=== PATIENT | female | born 1970 | race American Indian/Alaskan Native ===

== ENCOUNTER 2017-08-07 10:27 | Day surgery (SDC) | payer BC, OTHER ==
[~2017-08-07 10:27] MED LIST: Lactated Ringers 1,000 ML IV SCH; Lidocaine 2% 5 ML SDV ONE; Propofol 200 MG/20 ML SDV ONE; Sodium Chloride 0.9% 10 ML Syringe FLUSH PRN; Sodium Chloride 0.9% 2.5 ML Syringe FLUSH PRN
--- NOTE | 2017-08-07 11:16 | PCM.PREANE ---
Preanesthetic Assessment - Anesthesia/Transfusion/Family Hx Anesthesia History: Prior Anesthesia Without Reaction Family History of Anesthesia Reaction: No Transfusion History: No Prior Transfusion(s) Intubation History: Unknown - Review of Systems General: No Symptoms Pulmonary: No Symptoms Cardiovascular: No Symptoms Gastrointestinal: Difficulty Swallowing, Other (acid reflux) Neurological: No Symptoms Other: Reports: None - Physical Assessment O2 Sat by Pulse Oximetry: 97 Respiratory Rate: 16 Vital Signs: Last Vital Signs Temp 36.9 C 08/07/17 11:02 Pulse 71 08/07/17 11:02 Resp 16 08/07/17 11:02 BP 118/72 08/07/17 11:02 Pulse Ox 97 08/07/17 11:02 Height: 1.65 m Weight: 102.058 kg ASA Class: 2 Mental Status: Alert & Oriented x3 Airway Class: Mallampati = 2 Dentition: Reports: Normal Dentition, Groom(s) (x1 upper front) Thyro-Mental Finger Breadths: 3 Mouth Opening Finger Breadths: 3 ROM/Head Extension: Full Lungs: Clear to Auscultation, Normal Respiratory Effort Cardiovascular: Regular Rate, Regular Rhythm - Allergies Allergies/Adverse Reactions: Allergies Allergy/AdvReac Type Severity Reaction Status Date / Time Penicillins Allergy Swollen Verified 08/05/17 16:39 Tongue - Blood Blood Available: No - Anesthesia Plan Pre-Op Medication Ordered: None - Acknowledgements Anesthesia Type Planned: MAC Pt an Appropriate Candidate for the Planned Anesthesia: Yes Alternatives and Risks of Anesthesia Discussed w Pt/Guardian: Yes Pt/Guardian Understands and Agrees with Anesthesia Plan: Yes PreAnesthesia Questionnaire - Past Health History Medical/Surgical History: Denies Medical/Surgical History HEENT History: Reports: Allergic Rhinitis Other HEENT History: takes sertraline for allergies Cardiovascular History: Reports: Hypertension Gastrointestinal History: Reports: GERD, Helicobacter Pylori, Hiatal Hernia, Other (See Below) Other Gastrointestinal History: dysphagia [employer]ASS[employer]GER [employer] 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: Musculoskeletal History: Reports: Arthritis, Fracture Other Musculoskeletal History: hx of fx finger Psychiatric History: Reports: Anxiety Endocrine/Metabolic History: Reports: Obesity/BMI 30+ - Past Surgical History HEENT Surgical History: Reports: Oral Surgery Other HEENT Surgeries/Procedures: wisdom teeth GI Surgical History: Reports: Cholecystectomy Female Surgical History: Reports: Section, Tubal Ligation - SUBSTANCE USE Smoking Status *Q: Former Smoker (quit 2 years ago) Days Per Week of Alcohol Use: 0 Recreational Drug Use History: No - HOME MEDS Home Medications: Home Meds Carvedilol 12.5 mg PO BID 08/05/17 [History] Celecoxib 200 mg PO ASDIRECTED PRN 08/05/17 [History] Escitalopram Oxalate 20 mg PO DAILY 08/05/17 [History] Furosemide 20 mg PO ASDIRECTED PRN 08/05/17 [History] Montelukast Sodium 10 mg PO BEDTIME 08/05/17 [History] Sucralfate [Carafate] 1 gm PO QID 08/05/17 [History] - CURRENT (IN HOUSE) MEDS Current Meds: Current Medications Lactated Ringer's (Ringers, Lactated) 1,000 mls @ 125 mls/hr IV ASDIRECTED CHRISTIE Last Admin: 08/07/17 11:02 Dose: 125 mls/hr Sodium Chloride (Saline Flush) 10 ml FLUSH ASDIRECTED PRN PRN Reason: Keep Vein Open Sodium Chloride (Saline Flush) 2.5 ml FLUSH ASDIRECTED PRN PRN Reason: Keep Vein Open Discontinued Medications Lidocaine (Xylocaine-Mpf 2%) Confirm Administered Dose 5 ml .ROUTE .STK-MED ONE Stop: 08/07/17 09:45 Propofol (Diprivan 20 Ml) Confirm Administered Dose 400 mg .ROUTE .STK-MED ONE Stop: 08/07/17 09:45
--- NOTE | 2017-08-07 12:23 | PCM.OPNOTE ---
- General Post-Op/Procedure Note Date of Surgery/Procedure: 08/07/17 Operative Procedure(s): EGD with biopsy Findings: Hiatal hernia with inflamed gastric tissue in hernia. Duodenal polyp vs ulceration duodenal bulb Pre Op Diagnosis: Hiatal hernia, GERD Post-Op Diagnosis: Hiatal hernia, gastritis, duodenal lesion Anesthesia Technique: [facility] Primary Surgeon: Francine Costa Condition: Good
--- NOTE | 2017-08-07 21:18 | OR ---
SURGEON: BOB ABRAHAM MD DATE OF PROCEDURE: 08/07/2017 PREOPERATIVE DIAGNOSIS: Hiatal hernia. POSTOPERATIVE DIAGNOSES: 1. Hiatal hernia. 2. Gastritis. 3. Duodenal lesion. PROCEDURE PERFORMED: Diagnostic esophagogastroduodenoscopy. INSTRUMENT USED: Olympus endoscope. ANESTHESIA: MAC. EXTENT OF EXAM: Second portion of the duodenum. PREPARATION: Good. LIMITATIONS: None. INDICATIONS FOR EXAMINATION: The patient is a 47-year-old female, who presents with increasing epigastric pain and dysphagia. An upper GI was performed that showed a small hiatal hernia. The decision was made to proceed with a diagnostic EGD. We discussed the procedure as well as expected perioperative course. We discussed the risks including bleeding, infection, or damage to surrounding structures including perforation. The patient verbalized understanding and wishes to proceed. PROCEDURE IN DETAIL: The patient was brought into the endoscopy suite and placed in a beach chair position. A time-out was completed verifying the patient's name, age, date of , allergies, and procedure to be performed. A bite block was placed in the patient's mouth and monitored anesthesia care was induced. Continuous oxygen was provided via nasal cannula throughout the procedure. After adequate sedation was achieved, a well lubricated endoscope was placed in the patient's mouth and advanced under direct visualization to the level of the second portion of the duodenum. This appeared normal and photograph was taken. The scope was then fully withdrawn while examining the color, texture, anatomy, and integrity of the mucosa of the upper GI tract. The patient was noted to have either healing ulcers or small duodenal polyps right at the level of the pylorus. Biopsies of these were taken and sent as duodenal biopsies. The scope was brought into the stomach and a photograph was taken of the pylorus as well as the GE junction. The patient was noted to have a small hiatal hernia. Biopsies were taken of the gastric body, antrum, and fundus and sent for H. pylori testing. The scope was then brought into the hiatal hernia sac. There was inflammation of the hiatal hernia sac and a biopsy of this area was taken. The scope was then brought into the distal esophagus. The distal esophageal mucosa appeared normal with no evidence of ulceration or inflammation. A photograph was taken. The remainder of the esophageal mucosa appeared normal. The scope was then removed from the patient and the procedure terminated. The patient was transferred to PACU in stable condition. ENDOSCOPIC DIAGNOSES: 1. Hiatal hernia. 2. Gastritis. 3. Duodenal lesion. RECOMMENDATIONS: Follow up in clinic in 2 weeks. The patient to continue to take PPI therapy. SARMAD IRVIN /[id number]
== END 2017-08-07 13:00 | disposition home or self-care (01) ==
LOC: MW.SDS 10:27
PROVIDERS: ATTEND Surgery
DX: K29.50 Unspecified chronic gastritis without bleeding (principal); K44.9 Diaphragmatic hernia without obstruction or gangrene; Z88.0 Allergy status to penicillin; K21.9 Gastro-esophageal reflux disease without esophagitis; Z79.899 Other long term (current) drug therapy; Z90.49 Acquired absence of other specified parts of digestive tract; Z98.51 Tubal ligation status; Z87.891 Personal history of nicotine dependence
CPT/HCPCS: 43239; 88305; 88312; J7120; 00740; J2704

== ENCOUNTER 2017-12-05 03:19 | Emergency (ER) | payer BC, OTHER ==
[2017-12-05] MEDS ORDERED: Pantoprazole 40 MG Vial IVPUSH ONE (03:30)
[2017-12-05] MEDS ORDERED: Alum Hydrox/Mag Hydrox/Simeth 15 ML, Metoclopramide 5 MG, Lidocaine 2% 5 ML PO ONE ×3 (03:30)
[2017-12-05 04:19] LABS: CHLORIDE,CL 104 mmol/L (98-107); SODIUM,NA 142 mmol/L (136-145)
--- NOTE | 2017-12-05 04:44 | EDM.PDOC ---
ED HPI GENERAL MEDICAL PROBLEM - General Chief Complaint: ENT Problem Stated Complaint: BURNING IN THROAT Time Seen by Provider: 12/05/17 04:42 - History of Present Illness INITIAL COMMENTS - FREE TEXT/NARRATIVE: HISTORY AND PHYSICAL: History of present illness: Patient's a 47 show female history of [id number] diabetes gastroesophageal reflux disease and hiatal hernia presents with concern of burning discomfort in her chest. She denies shortness of breath nausea vomiting palpitations other concern Review of systems: As per history of present illness and below otherwise all systems reviewed and negative. Past medical history: As per history of present illness and as reviewed below otherwise noncontributory. Surgical history: As per history of present illness and as reviewed below otherwise noncontributory. Social history: No reported history of drug or alcohol abuse. Family history: As per history of present illness and as reviewed below otherwise noncontributory. Physical exam: HEENT: Atraumatic, normocephalic, pupils reactive, negative for conjunctival pallor or scleral icterus, mucous membranes moist, throat clear, neck supple, nontender, trachea midline. Lungs: Clear to auscultation, breath sounds equal bilaterally, chest nontender. Heart: S1S2, regular, negative for clicks, rubs, or JVD. Abdomen: Soft, nondistended, nontender. Negative for masses or hepatosplenomegaly. Negative for costovertebral tenderness. Pelvis: Stable nontender. Genitourinary: Deferred. Rectal: Deferred. Extremities: Atraumatic, negative for cords or calf pain. Neurovascular unremarkable. Neuro: Awake, alert, oriented. Cranial nerves II through XII unremarkable. Cerebellum unremarkable. Motor and sensory unremarkable throughout. Exam nonfocal. Diagnostics: CBC CMP EKG troponin Therapeutics: GI Cocktail Protonix 80 mg IV Impression: #1 gastroesophageal reflux disease Definitive disposition and diagnosis as appropriate pending reevaluation and review of above. throat Pain Score (Numeric/FACES): 5 - Related Data Allergies Allergy/AdvReac Type Severity Reaction Status Date / Time Penicillins Allergy Swollen Verified 12/05/17 03:25 Tongue Home Meds: Home Meds Carvedilol 12.5 mg PO BID 08/05/17 [History] Celecoxib 200 mg PO ASDIRECTED PRN 08/05/17 [History] Escitalopram Oxalate 20 mg PO DAILY 08/05/17 [History] Furosemide 20 mg PO ASDIRECTED PRN 08/05/17 [History] Montelukast Sodium 10 mg PO BEDTIME 08/05/17 [History] Sucralfate [Carafate] 1 gm PO QID 08/05/17 [History] Pantoprazole [ProTONIX] 40 mg PO ACBREAKFAST #60 tab.cr 08/07/17 [Rx] Carvedilol 3.125 mg PO BID 12/05/17 [History] Diclofenac Sodium [Voltaren] 50 mg PO TID 12/05/17 [History] Lansoprazole [Prevacid] 1 tab PO DAILY 12/05/17 [History] atorvaSTATin [Lipitor] 20 mg PO BEDTIME 12/05/17 [History] metFORMIN [Glucophage] 500 mg PO DAILY 12/05/17 [History] Past Medical History - Past Health History Medical/Surgical History: Denies Medical/Surgical History HEENT History: Reports: Allergic Rhinitis Other HEENT History: takes sertraline for allergies Cardiovascular History: Reports: High Cholesterol, Hypertension Respiratory History: Reports: Other (See Below) Other Respiratory History: Allergies Gastrointestinal History: Reports: GERD, Helicobacter Pylori, Hiatal Hernia, Other (See Below) Other Gastrointestinal History: dysphagia Genitourinary History: Reports: None [employer]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: Musculoskeletal History: Reports: Arthritis, Fracture Other Musculoskeletal History: hx of fx finger Neurological History: Reports: None Psychiatric History: Reports: Anxiety Endocrine/Metabolic History: Reports: Obesity/BMI 30+ Hematologic History: Reports: None Immunologic History: Reports: None Oncologic (Cancer) History: Reports: None Dermatologic History: Reports: None - Infectious Disease History Infectious Disease History: Reports: None - Past Surgical History Head Surgeries/Procedures: Reports: None HEENT Surgical History: Reports: Oral Surgery Other HEENT Surgeries/Procedures: wisdom teeth GI Surgical History: Reports: Cholecystectomy Female Surgical History: Reports: Tubal Ligation Social & Family History - Family History Family Medical History: Noncontributory - Tobacco Use Smoking Status *Q: Never Smoker Years of Tobacco use: 30 - Caffeine Use Caffeine Use: Reports: None - Alcohol Use Days Per Week of Alcohol Use: 0 - Recreational Drug Use Recreational Drug Use: No Drug Use in Last 12 Months: No ED ROS GENERAL - Review of Systems Review Of Systems: ROS reveals no pertinent complaints other than HPI. ED EXAM, GENERAL - Physical Exam Exam: See Below (See dictation) Course - Vital Signs Last Recorded V/S: Last Vital Signs Temp 36.1 C 12/05/17 03:25 Pulse 85 12/05/17 03:25 Resp 19 12/05/17 03:25 BP Pulse Ox 94 L 12/05/17 03:25 - Orders/Labs/Meds Orders: Active Orders 24 hr Category Date Time Status EKG Documentation Completion [RC] STAT Care 12/05/17 03:30 Active Chest 1V Frontal [CR] Stat Exams 12/05/17 03:30 Taken Labs: Laboratory Tests 12/05/17 12/05/17 Range/Units 03:40 03:40 WBC 7.38 (4.0-11.0) K/uL RBC 4.13 L (4.30-5.90) M/uL Hgb 12.0 (12.0-16.0) g/dL Hct 35.8 L (36.0-46.0) % MCV 86.7 (80.0-98.0) fL MCH 29.1 (27.0-32.0) pg MCHC 33.5 (31.0-37.0) g/dL RDW Std Deviation 42.0 (28.0-62.0) fl RDW Coeff of Roberta 13 (11.0-15.0) % Plt Count 293 (150-400) K/uL MPV 9.40 (7.40-12.00) fL Neut % (Auto) 52.8 (48.0-80.0) % Lymph % (Auto) 37.1 (16.0-40.0) % Robertson % (Auto) 6.5 (0.0-15.0) % Eos % (Auto) 3.5 (0.0-7.0) % Baso % (Auto) 0.1 (0.0-1.5) % Neut # (Auto) 3.9 (1.4-5.7) K/uL Lymph # (Auto) 2.7 H (0.6-2.4) K/uL Robertson # (Auto) 0.5 (0.0-0.8) K/uL Eos # (Auto) 0.3 (0.0-0.7) K/uL Baso # (Auto) 0.0 (0.0-0.1) K/uL Nucleated RBC % 0.0 /100WBC Nucleated RBCs # 0 K/uL Sodium 142 (136-145) mmol/L Potassium 3.5 (3.5-5.1) mmol/L Chloride 104 (98-107) mmol/L Carbon Dioxide 26.0 (21.0-32.0) mmol/L BUN 23 H (7.0-18.0) mg/dL Creatinine 0.8 (0.6-1.0) mg/dL Est Cr Clr Drug Dosing 79.07 mL/min Estimated GFR (MDRD) > 60.0 ml/min Glucose 114 H (74-106) mg/dL Calcium 8.9 (8.5-10.1) mg/dL Total Bilirubin 0.3 (0.2-1.0) mg/dL AST 25 (15-37) IU/L ALT 37 (14-63) IU/L Alkaline Phosphatase 123 H (46-116) U/L CK-MB (CK-2) 1.3 (0-3.6) ng/mL Troponin I < 0.050 (0.000-0.056) ng/mL Total Protein 8.1 (6.4-8.2) g/dL Albumin 3.8 (3.4-5.0) g/dL Globulin 4.3 H (2.0-3.5) g/dL Albumin/Globulin Ratio 0.9 L (1.3-2.8) Meds: Medications Discontinued Medications Generic Name Dose Route Start Last Admin Trade Name Freq PRN Reason Stop Dose Admin Al Hydroxide/Mg Hydroxide 15 0 ml 12/05/17 03:30 12/05/17 03:43 ml/ Metoclopramide HCl 5 mg/ PO 12/05/17 03:31 20 each Lidocaine HCl 5 ml ONETIME ONE Administration Pantoprazole Sodium 80 mg 12/05/17 03:30 12/05/17 03:45 Protonix Iv IVPUSH 12/05/17 03:31 80 mg NOW ONE Administration Departure - Departure Time of Disposition: 04:43 Disposition: Home, Self-Care 01 Condition: Good Clinical Impression: Gastroesophageal reflux disease - Discharge Information Additional Instructions: The following information is given to patients seen in the emergency department who are being discharged to home. This information is to outline your options for follow-up care. We provide all patients seen in our emergency department with a follow-up referral. The need for follow-up, as well as the timing and circumstances, are variable depending upon the specifics of your emergency department visit. If you don't have a primary care physician on staff, we will provide you with a referral. We always advise you to contact your personal physician following an emergency department visit to inform them of the circumstance of the visit and for follow-up with them and/or the need for any referrals to a consulting specialist. The emergency department will also refer you to a specialist when appropriate. This referral assures that you have the opportunity for followup care with a specialist. All of these measure are taken in an effort to provide you with optimal care, which includes your followup. Under all circumstances we always encourage you to contact your private physician who remains a resource for coordinating your care. When calling for followup care, please make the office aware that this follow-up is from your recent emergency room visit. If for any reason you are refused follow-up, please contact the [facility] emergency department at and asked to speak to the emergency department charge nurse. Continue current medications follow-up private medical doctor return as needed as discussed - My Orders Last 24 Hours: My Active Orders 12/05/17 03:30 EKG Documentation Completion [RC] STAT Chest 1V Frontal [CR] Stat - Assessment/Plan Last 24 Hours: My Active Orders 12/05/17 03:30 EKG Documentation Completion [RC] STAT Chest 1V Frontal [CR] Stat
--- NOTE | 2017-12-07 09:41 | CR ---
EXAM DATE: 12/05/17 PATIENT'S AGE: 47 Patient: ELDON PARTIDA Facility: [place], [place] Site . Site : [id number] Study: XRay Chest [id number] 4:15:26 AM Ordering Physician: Doctor Dickson Final Report: INDICATION: CHEST PAIN TECHNIQUE: Chest 1 view COMPARISON: March 15, 2012 FINDINGS: Cardiovascular and mediastinum: Heart size and vasculature are normal in caliber and appearance. Mediastinum is within normal limits. Lungs and pleural space: No focal consolidation. No sign of pleural effusion. No pneumothorax. Bones and soft tissues: No significant findings. IMPRESSION: No acute cardiopulmonary disease. Dictated by Juan Hairston MD @ 12/05/2017 4:20:25 AM Dictated by: Juan Hairston MD @ 12/05/2017 04:20:31 (Electronic Signature) Report Signed by Proxy. MTDLou
== END 2017-12-05 04:53 | disposition home or self-care (01) ==
LOC: MW.ED 03:19
DX: K21.9 Gastro-esophageal reflux disease without esophagitis (principal); E78.00 Pure hypercholesterolemia, unspecified; I10 Essential (primary) hypertension; E66.9 Obesity, unspecified; Z88.0 Allergy status to penicillin; Z79.899 Other long term (current) drug therapy; Z79.84 Long term (current) use of oral hypoglycemic drugs; Z68.39 Body mass index [BMI] 39.0-39.9, adult
CPT/HCPCS: 36415; 71045; 80053; 82553; 84484; 85025; 93005; 96374; 99285; A9270; C9113; 99283

== ENCOUNTER 2019-03-13 12:51 | Emergency (ER) | payer BC, OTHER ==
--- NOTE | 2019-03-13 12:58 | EDM.PDOC ---
ED HPI GENERAL MEDICAL PROBLEM - General Chief Complaint: Back Pain or Injury Stated Complaint: BACK PAIN Time Seen by Provider: 03/13/19 12:53 Source of Information: Reports: Patient History Limitations: Reports: No Limitations - History of Present Illness INITIAL COMMENTS - FREE TEXT/NARRATIVE: HISTORY AND PHYSICAL: History of present illness: Patient is a 48-year-old female who presents to the emergency room with complaints of low lumbar pain. She states she was carrying 2 boxes from her car when she moved and suddenly had sharp low back pain. She states she was able to continue to ambulate although when raising her arms or twisting side to side it exacerbated the pain. She denies any numbness, tingling or saddle paresthesias. She denies any weakness, urinary or fecal incontinence. No previous history of back problems. There was no injury, trauma or fall associated with the lumbar back pain Patient denies any fever, chills, headache, change in vision, syncope or near syncope. Denies any chest pain, shortness of breath or cough. Denies any abdominal pain, nausea, vomiting, diarrhea, constipation or dysuria. Has not noted any blood in urine or stool. Patient has been eating and drinking appropriately. Review of systems: As per history of present illness and below otherwise all systems reviewed and negative. Past medical history: As per history of present illness and as reviewed below otherwise noncontributory. Surgical history: As per history of present illness and as reviewed below otherwise noncontributory. Social history: See social history for further information Family history: As per history of present illness and as reviewed below otherwise noncontributory. Physical exam: General: Well-developed and well-nourished 48-year-old female. Alert and oriented. Nontoxic appearing and in no acute distress. HEENT: Atraumatic, normocephalic, pupils equal and reactive bilaterally, negative for conjunctival pallor or scleral icterus, mucous membranes moist, trachea midline. No drooling or trismus noted. No meningeal signs. No hot potato voice noted. Lungs: Clear to auscultation, breath sounds equal bilaterally, chest nontender. Heart: S1S2, regular rate and rhythm without overt murmur Abdomen: Soft, nondistended, nontender. Negative for masses. Negative for costovertebral tenderness. Pelvis: Stable nontender. Genitourinary/Rectal: Deferred. Skin: Intact, warm, dry. No lesions or rashes noted. C-spine/Back: No pinpoint vertebral tenderness upon palpation. No crepitus, step -offs or obvious deformities. Paraspinous muscular tenderness to the low lumbar region bilaterally. Patient is ambulatory into the emergency room without difficulty or deficits. Denies any numbness, tingling or saddle paresthesia. Denies any urinary or fecal incontinence. Patient is able to walk on her heels and toes without difficulty. Extremities: Atraumatic, moves all extremities per self without deficits. Patient is able to bend at the waist forward to about 45 before it causes moderate to severe pain to the lumbar spine. She is able to slightly bend side to side and twist side to side, before causing pain. Neurovascular unremarkable. Neuro: Awake, alert, oriented. Cranial nerves II through XII unremarkable. Cerebellum unremarkable. Motor and sensory unremarkable throughout. Exam nonfocal. Notes: Patient did find relief with the injections. X-ray shows no acute findings. Medication and supportive care measures were reviewed and discussed. Voices understanding and is agreeable to plan of care. Denies any further questions or concerns at this time. Diagnostics: Lumbar Spine X-ray Therapeutics: Toradol, Norflex Prescription: [facility] (#20) Impression: Lumbar back pain, acute Plan: 1. The medication he received as an injection today does cause drowsiness so do not drive for the remaining day 2. When resting please lay on a flat firm surface. Limit your immobility to prevent muscle stiffness, get up to ambulate/move around/gentle stretching multiple times throughout the day. May alternate heat and ice to the painful areas 3. Tylenol as needed for back pain. Thang as directed, this medication may cause drowsiness a do not take it will driving her needing to be functioning outside of the house. 4. Please follow-up with your primary care provider as we discussed. Return to the ED as needed and as discussed. Definitive disposition and diagnosis as appropriate pending reevaluation and review of above. Onset: Today Lower Back Pain Score (Numeric/FACES): 9 - Related Data Allergies Allergy/AdvReac Type Severity Reaction Status Date / Time Penicillins Allergy Swollen Verified 03/13/19 13:00 Tongue Home Meds: Home Meds Carvedilol 12.5 mg PO BID 08/05/17 [History] Escitalopram Oxalate 20 mg PO DAILY 08/05/17 [History] Furosemide 20 mg PO ASDIRECTED PRN 08/05/17 [History] Lansoprazole [Prevacid] 1 tab PO DAILY 12/05/17 [History] Acetaminophen/HYDROcodone [[facility] [place] 325-5 MG] 1 dose PO Q4H PRN #20 tablet [Rx] Past Medical History - Past Health History Medical/Surgical History: Denies Medical/Surgical History HEENT History: Reports: Allergic Rhinitis Other HEENT History: takes sertraline for allergies Cardiovascular History: Reports: High Cholesterol, Hypertension Respiratory History: Reports: Other (See Below) Other Respiratory History: Allergies Gastrointestinal History: Reports: GERD, Helicobacter Pylori, Hiatal Hernia, Other (See Below) Other Gastrointestinal History: dysphagia Genitourinary History: Reports: None [employer] History: Reports: Musculoskeletal History: Reports: Arthritis, Fracture Other Musculoskeletal History: hx of fx finger Neurological History: Reports: None Psychiatric History: Reports: Anxiety Endocrine/Metabolic History: Reports: Obesity/BMI 30+ Hematologic History: Reports: None Immunologic History: Reports: None Oncologic (Cancer) History: Reports: None Dermatologic History: Reports: None - Infectious Disease History Infectious Disease History: Reports: None - Past Surgical History Head Surgeries/Procedures: Reports: None HEENT Surgical History: Reports: Oral Surgery Other HEENT Surgeries/Procedures: wisdom teeth GI Surgical History: Reports: Cholecystectomy Female Surgical History: Reports: Tubal Ligation Social & Family History - Family History Family Medical History: Noncontributory - Caffeine Use Caffeine Use: Reports: None ED ROS GENERAL - Review of Systems Review Of Systems: ROS reveals no pertinent complaints other than HPI. ED EXAM,LOWER BACK PAIN/INJURY - Physical Exam Exam: See Below (See dictation) Course - Vital Signs Last Recorded V/S: Last Vital Signs Temp 97.0 F 03/13/19 12:58 Pulse 96 03/13/19 12:58 Resp 18 03/13/19 12:58 BP 140/74 03/13/19 12:58 Pulse Ox 96 03/13/19 12:58 - Orders/Labs/Meds Orders: Active Orders 24 hr Category Date Time Status Lumbar Spine 2 or 3V [CR] Stat Exams 03/13/19 12:59 Ordered Meds: Medications Discontinued Medications Generic Name Dose Route Start Last Admin Trade Name Freq PRN Reason Stop Dose Admin Ketorolac Tromethamine 60 mg 03/13/19 13:04 03/13/19 13:09 Toradol IM 03/13/19 13:05 60 mg ONETIME ONE Administration Orphenadrine Citrate 60 mg 03/13/19 12:59 03/13/19 13:09 Norflex IM 03/13/19 13:00 60 mg NOW STA Administration Departure - Departure Time of Disposition: 13:28 Disposition: Home, Self-Care 01 Clinical Impression: Acute lumbar back pain Qualifiers: Back pain laterality: bilateral Sciatica presence: without sciatica Qualified Code(s): M54.5 - Low back pain - Discharge Information Prescriptions: Acetaminophen/HYDROcodone [[facility] [place] 325-5 MG] 1 dose PO Q4H PRN #20 tablet PRN Reason: Pain Instructions: Acute Back Pain, Adult Referrals: PCP,Unknown [Primary Care Provider] - Forms: ED Department Discharge Additional Instructions: The following information is given to patients seen in the emergency department who are being discharged to home. This information is to outline your options for follow-up care. We provide all patients seen in our emergency department with a follow-up referral. The need for follow-up, as well as the timing and circumstances, are variable depending upon the specifics of your emergency department visit. If you don't have a primary care physician on staff, we will provide you with a referral. We always advise you to contact your personal physician following an emergency department visit to inform them of the circumstance of the visit and for follow-up with them and/or the need for any referrals to a consulting specialist. The emergency department will also refer you to a specialist when appropriate. This referral assures that you have the opportunity for follow-up care with a specialist. All of these measure are taken in an effort to provide you with optimal care, which includes your follow-up. Under all circumstances we always encourage you to contact your private physician who remains a resource for coordinating your care. When calling for follow-up care, please make the office aware that this follow-up is from your recent emergency room visit. If for any reason you are refused follow-up, please contact the [facility] Emergency Department at and asked to speak to the emergency department charge nurse. [facility] [address] [place] [address], [place] [address] [facility] [address] [place] [address] 1. The medication he received as an injection today does cause drowsiness so do not drive for the remaining day 2. When resting please lay on a flat firm surface. Limit your immobility to prevent muscle stiffness, get up to ambulate/move around/gentle stretching multiple times throughout the day. May alternate heat and ice to the painful areas 3. Tylenol and/or Ibuprofen as needed for back pain. Thang as directed, this medication may cause drowsiness a do not take it will driving her needing to be functioning outside of the house. 4. Please follow-up with your primary care provider as we discussed. Return to the ED as needed and as discussed. - My Orders Last 24 Hours: My Active Orders 03/13/19 12:59 Lumbar Spine 2 or 3V [CR] Stat - Assessment/Plan Last 24 Hours: My Active Orders 03/13/19 12:59 Lumbar Spine 2 or 3V [CR] Stat
[2019-03-13] MEDS ORDERED: Ketorolac 60 MG/2 ML SDV IM ONE (13:04)
--- NOTE | 2019-03-13 14:17 | CR ---
Pain 3 views of the lumbar spine. Findings : Normal height and alignment lumbar vertebral bodies. Five non rib-bearing lumbar type vertebral bodies. Short ribs at the designated T12. Grade 1 anterolisthesis of L4 on L5. Mild degenerative change of lumbar spine. No acute fractures. Dictated by Maritza Samaniego MD @ Mar 13 2019 2:15PM Signed by Dr. Maritza Samaniego @ Mar 13 2019 2:16PM
== END 2019-03-13 14:04 | disposition home or self-care (01) ==
LOC: MW.ED 12:51
DX: M54.5 Low back pain (principal); M19.90 Unspecified osteoarthritis, unspecified site; E66.9 Obesity, unspecified; I10 Essential (primary) hypertension; F41.9 Anxiety disorder, unspecified; Z98.51 Tubal ligation status; Z90.49 Acquired absence of other specified parts of digestive tract; Z88.0 Allergy status to penicillin; Z79.899 Other long term (current) drug therapy; X50.0XXA Overexertion from strenuous movement or load, initial encounter
CPT/HCPCS: 72100; 96372; 99283; J1885; J2360

== ENCOUNTER 2021-05-24 19:17 | Emergency (ER) | payer BC, OTHER ==
--- NOTE | 2021-05-24 19:24 | EDM.PDOC ---
<Nadira Phillips E - Last Filed: 05/27/21 09:55> ED HPI GENERAL MEDICAL PROBLEM - General Chief Complaint: Abdominal Pain Stated Complaint: ADOMINAL PAIN Time Seen by Provider: 05/24/21 19:22 Source of Information: Reports: Patient History Limitations: Reports: No Limitations - History of Present Illness INITIAL COMMENTS - FREE TEXT/NARRATIVE: HISTORY AND PHYSICAL: History of present illness: Patient is a 51-year-old female who presents to the emergency room with complaints of epigastric pain and nausea x 1 week. She states she was seen at [facility] this afternoon and was given IV fluids and pain medication. States pain has worsened, called EMS for transport. Patient denies any fever, chills, headache, change in vision, syncope or near syncope. Denies any chest pain, back pain, shortness of breath or cough. Denies any vomiting, diarrhea, constipation or dysuria. Has not noted any blood in urine or stool. Patient has been eating and drinking appropriately. No recent travel or sick contacts. Review of systems: As per history of present illness and below otherwise all systems reviewed and negative. Past medical history: As per history of present illness and as reviewed below otherwise noncontributory. Surgical history: As per history of present illness and as reviewed below otherwise noncontributory. Social history: See social history for further information Family history: As per history of present illness and as reviewed below otherwise noncontributory. Physical exam: General: Well developed and well nourished 51 year old female. Alert and orientated x 3. Nontoxic in appearance and in no acute distress. Vital signs are stable and have been reviewed by me. Nursing notes were reviewed. HEENT: Atraumatic, normocephalic, pupils equal and reactive bilaterally, negative for conjunctival pallor or scleral icterus, mucous membranes moist, TMs normal bilaterally, throat clear, neck supple, nontender, trachea midline. No drooling or trismus noted. No meningeal signs. No hot potato voice noted. Lungs: Clear to auscultation bilaterally. No wheezes, rales, or rhonchi. Chest nontender. Normal work of breathing, no accessory muscles used. Heart: S1S2, regular rate and rhythm without overt murmur, gallops, or rubs. No JVD. No peripheral edema Abdomen: Soft, nondistended, epigastric tenderness. Normoactive bowel sounds. Negative for masses or costovertebral tenderness. Skin: Intact, warm, dry. No lesions or rashes noted. Hematologic: No petechiae or purpra. Mucosa appropriate color and normal nail bed color and refill. Extremities: Atraumatic, moves all extremities per self without difficulty or deficits, negative for cords or calf pain. Neurovascular unremarkable. Neuro: Awake, alert, oriented. Cranial nerves II through XII unremarkable. Cerebellum unremarkable. Motor and sensory unremarkable throughout. Exam nonfocal. Psychiatric: Mood and affect are appropriate. Normal thought process. Answering questions appropriately. Please note that the patient was seen and evaluated during the 2019 SARS-CoV-2 novel coronavirus pandemic period. Community viral transmission is ongoing at time of this encounter and the emergency department is operating under pandemic response procedures. Medical Decision Making: Patient is a 51-year-old female who presents to the emergency room with complaints of epigastric pain and nausea x1 week. She has already been seen by [facility] this afternoon and was given IV fluids and pain medication. She states since leaving the clinic her symptoms have worsened. We will do lab work and CT scan of the abdomen and pelvis. Lab work is unremarkable. CT shows patchy bibasilar pulmonary opacities, suspicious for atypical pneumonia possibly COVID-19. No acute intra-abdominal abnormality is noted. Patient does feel improved after the GI cocktail and Pepcid. This is likely gastritis. I have talked with the patient about today's findings, in addition to providing specific details for plan of care. Reassessment at the time of disposition demonstrates that the patient is in no acute distress. The patient is stable for discharge, counseling was provided and we discussed in great detail signs and symptoms that would prompt them to return to the Emergency Department. Medication, follow up and supportive care measures were reviewed and discussed. Voices understanding and is agreeable to plan of care. Denies any further questions or concerns at this time. Diagnostics: CBC, CMP, Lipase, UA, CT abd/pelvis Therapeutics: IV fluids, Pepcid, GI cocktail Impression: Epigastric Pain Gastritis Plan: 1. You were evaluated today on an emergent basis. [place] diet, advance as tolerated. 2. You can alternate Tylenol and ibuprofen as needed for pain and fever management. 3. We encourage you to follow up with your primary care provider and/or recommended specialist in the next few days for re-evaluation and further care/management. 4. If your symptoms should worsen, new symptoms develop or any of the signs and symptoms we discussed should arise please return to the emergency room or call 911 (if needed). Definitive disposition and diagnosis as appropriate pending reevaluation and review of above. 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: Other (see below) Other Treatments CONTROL ROOM OPERATOR: tylenol with codeine at 1800 this evening upper abd Pain Score (Numeric/FACES): 10 - Related Data Allergies Allergy/AdvReac Type Severity Reaction Status Date / Time Penicillins Allergy Swollen Verified 03/13/19 13:00 Tongue Home Meds: Home Meds Acetaminophen/HYDROcodone [[place] 325-5 MG] 1 dose PO Q4H PRN #20 tablet 03/13/19 [Rx] Famotidine [Pepcid] 40 mg PO DAILY #70 ml 05/25/21 [Rx] Past Medical History - Past Health History Medical/Surgical History: Denies Medical/Surgical History HEENT History: Reports: Allergic Rhinitis Other HEENT History: takes sertraline for allergies Cardiovascular History: Reports: High Cholesterol, Hypertension Respiratory History: Reports: Other (See Below) Other Respiratory History: Allergies Gastrointestinal History: Reports: GERD, Helicobacter Pylori, Hiatal Hernia, Other (See Below) Other Gastrointestinal History: dysphagia Genitourinary History: Reports: None 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: Musculoskeletal History: Reports: Arthritis, Fracture Other Musculoskeletal History: hx of fx finger Neurological History: Reports: None Psychiatric History: Reports: Anxiety Endocrine/Metabolic History: Reports: Obesity/BMI 30+ Hematologic History: Reports: None Immunologic History: Reports: None Oncologic (Cancer) History: Reports: None Dermatologic History: Reports: None - Infectious Disease History Infectious Disease History: Reports: None - Past Surgical History Head Surgeries/Procedures: Reports: None HEENT Surgical History: Reports: Oral Surgery Other HEENT Surgeries/Procedures: wisdom teeth GI Surgical History: Reports: Cholecystectomy Female Surgical History: Reports: Tubal Ligation Social & Family History - Family History Family Medical History: No Pertinent Family History - Caffeine Use Caffeine Use: Reports: None ED ROS GENERAL - Review of Systems Review Of Systems: Comprehensive ROS is negative, except as noted in HPI. ED EXAM, GI/ABD - Physical Exam Exam: See Below (See dictation) Departure - Departure Disposition: Home, Self-Care 01 Clinical Impression: Epigastric abdominal pain Gastritis Qualifiers: Gastritis type: unspecified gastritis Chronicity: acute Gastritis bleeding: without bleeding Qualified Code(s): K29.00 - Acute gastritis without bleeding - Discharge Information Prescriptions: Famotidine [Pepcid] 40 mg PO DAILY #70 ml Instructions: Gastritis, Adult, [id number], Gastroesophageal Reflux Disease, Adult, [id number] Referrals: PCP,None [Primary Care Provider] - Forms: ED Department Discharge Additional Instructions: You were evaluated today on an emergent basis. At this time your work-up was negative. I recommend you use famotidine 40 mg daily at bedtime to help with gastritis, GERD, ulcers in the stomach. If you have any worsening pain, inability to tolerate fluids or food I would like you to return to the emergency department. Otherwise please follow-up with your primary care in 3 to 5 days. [facility] - Primary Care [address] [place] [address] [place] [address] The patient is informed of any results of their evaluation and diagnostic workup and all questions are answered. They are given discharge instructions and return precautions. The patient is stable for discharge. The patient states they understand and agree with the plan and that they will return if their symptoms get worse or if they have any new concerns. The following information is given to patients seen in the emergency department who are being discharged to home. This information is to outline your options for follow-up care. We provide all patients seen in our emergency department with a follow-up referral. The need for follow-up, as well as the timing and circumstances, are variable depending upon the specifics of your emergency department visit. If you don't have a primary care physician on staff, we will provide you with a referral. We always advise you to contact your personal physician following an emergency department visit to inform them of the circumstance of the visit and for follow-up with them and/or the need for any referrals to a consulting specialist. The emergency department will also refer you to a specialist when appropriate. This referral assures that you have the opportunity for follow-up care with a specialist. All of these measure are taken in an effort to provide you with optimal care, which includes your follow-up. Under all circumstances we always encourage you to contact your private physician who remains a resource for coordinating your care. When calling for follow-up care, please make the office aware that this follow-up is from your recent emergency room visit. If for any reason you are refused follow-up, please contact the [facility] Emergency Department at and asked to speak to the emergency department charge nurse. ` Sepsis Event Note (ED) - Evaluation Sepsis Screening Result: No Definite Risk <Hugo Frances - Last Filed: 05/27/21 13:17> ED HPI GENERAL MEDICAL PROBLEM - History of Present Illness INITIAL COMMENTS - FREE TEXT/NARRATIVE: Patient was signed out to me by Libra Phillips. I promptly performed a detailed physical examination and my examination was done after ED treatments were initiated by the signout provider. Patient has been under the care of previous provider up until this point. The radiological images were viewed by myself along with reading the report from the radiologist. CT abdomen pelvis with contrast does not reveal any acute injury in the abdomen or pelvis. There is patchy bibasilar pulmonary opacities suspicious for atypical ammonia otherwise no other abnormality. After imaging I did reevaluate the patient. She was able to tolerate p.o. and her pain had improved. I did discuss strict return precautions with the patient. She was amenable to discharge at this time and had no further questions DISPOSITION: The patient was discharged home in stable condition. The patient will follow up with primary care physician in 3 to 5 days CONDITION: Fair PROCEDURES: None FINAL IMPRESSION(S)/DIAGNOSES: 1. Acute abdominal pain likely secondary to gastritis versus peptic ulcer disease Hugo Frances M.D. Course - Vital Signs Last Recorded V/S: Last Vital Signs Temp 37.2 C 05/24/21 19:19 Pulse 67 05/25/21 00:16 Resp 18 05/25/21 00:16 BP 110/54 L 05/25/21 00:16 Pulse Ox 97 05/25/21 00:16 - Orders/Labs/Meds Labs: Laboratory Tests 05/24/21 05/24/21 05/24/21 Range/Units 20:47 20:47 21:45 WBC 4.56 (4.0-11.0) K/uL RBC 4.13 L (4.30-5.90) M/uL Hgb 11.9 L (12.0-16.0) g/dL Hct 34.7 L (36.0-46.0) % MCV 84.0 (80.0-98.0) fL MCH 28.8 (27.0-32.0) pg MCHC 34.3 (31.0-37.0) g/dL RDW Std Deviation 44.9 (28.0-62.0) fl RDW Coeff of Roberta 15 (11.0-15.0) % Plt Count 149 L (150-400) K/uL MPV 10.40 (7.40-12.00) fL Neut % (Auto) 66.5 (48.0-80.0) % Lymph % (Auto) 26.5 (16.0-40.0) % [place] % (Auto) 6.6 (0.0-15.0) % Eos % (Auto) 0.4 (0.0-7.0) % Baso % (Auto) 0.0 (0.0-1.5) % Neut # (Auto) 3.0 (1.4-5.7) K/uL Lymph # (Auto) 1.2 (0.6-2.4) K/uL [place] # (Auto) 0.3 (0.0-0.8) K/uL Eos # (Auto) 0.0 (0.0-0.7) K/uL Baso # (Auto) 0.0 (0.0-0.1) K/uL Nucleated RBC % 0.0 /100WBC Nucleated RBCs # 0 K/uL Sodium 142 (136-145) mmol/L Potassium 3.6 (3.5-5.1) mmol/L Chloride 106 (98-107) mmol/L Carbon Dioxide 25.2 (21.0-32.0) mmol/L BUN 9 (7.0-18.0) mg/dL Creatinine 0.7 (0.6-1.0) mg/dL Est Cr Clr Drug Dosing 86.52 mL/min Estimated GFR (MDRD) > 60.0 ml/min Glucose 129 H (74-106) mg/dL Calcium 7.4 L (8.5-10.1) mg/dL Total Bilirubin 0.5 (0.2-1.0) mg/dL AST 33 (15-37) IU/L ALT 35 (14-63) IU/L Alkaline Phosphatase 99 (46-116) U/L Total Protein 7.2 (6.4-8.2) g/dL Albumin 3.4 (3.4-5.0) g/dL Globulin 3.8 (2.6-4.0) g/dL Albumin/Globulin Ratio 0.9 (0.9-1.6) Lipase 95 (73-393) U/L Urine Color YELLOW Urine Appearance HAZY Urine pH 6.0 (5.0-8.0) Ur Specific [place] 1.020 (1.001-1.035) Urine Protein NEGATIVE (NEGATIVE) mg/dL Urine Glucose (UA) NEGATIVE (NEGATIVE) mg/dL Urine Ketones 15 H (NEGATIVE) mg/dL Urine Occult Blood TRACE-INTACT H (NEGATIVE) Urine Nitrite NEGATIVE (NEGATIVE) Urine Bilirubin SMALL H (NEGATIVE) Urine Ictotest NEGATIVE Urine Urobilinogen 0.2 (<2.0) EU/dL Ur Leukocyte Esterase NEGATIVE (NEGATIVE) Urine RBC 0-2 (0-2/HPF) Urine WBC 0-2 (0-5/HPF) Ur Epithelial Cells RARE (NONE-FEW) Urine Bacteria FEW (NEGATIVE) Urine Mucus LIGHT (NONE-MOD) Urine Yeast RARE Meds: Medications Discontinued Medications Generic Name Dose Route Start Last Admin Trade Name Freq PRN Reason Stop Dose Admin Al Hydroxide/Mg Hydroxide 15 0 ml 05/24/21 19:37 05/24/21 20:16 ml/ Metoclopramide HCl 5 mg/ PO 05/24/21 19:38 15 each Lidocaine HCl 5 ml ONETIME ONE Administration Famotidine 20 mg 05/24/21 19:38 05/24/21 20:16 Famotidine 20 Mg/2 Ml Sdv IVPUSH 05/24/21 19:39 20 mg ONETIME ONE Administration Sodium Chloride 1,000 mls @ 999 mls/hr 05/24/21 20:22 05/24/21 20:28 Normal Saline IV 05/24/21 21:22 999 mls/hr NOW STA Administration Iopamidol 100 ml 05/24/21 21:51 05/24/21 22:37 Iopamidol 755 Mg/Ml 100 Ml Bottle IVPUSH 05/24/21 21:52 100 ml ONETIME ONE Administration Departure - Departure Time of Disposition: 00:04 Condition: Fair - Discharge Information *PRESCRIPTION DRUG MONITORING PROGRAM REVIEWED*: No *COPY OF PRESCRIPTION DRUG MONITORING REPORT IN PATIENT JAEL: No
[2021-05-24] MEDS ORDERED: Alum Hydrox/Mag Hydrox/Simeth 15 ML, Metoclopramide 5 MG, Lidocaine 2% 5 ML PO ONE ×3 (19:37)
[2021-05-24] MEDS ORDERED: Famotidine 20 MG/2 ML SDV IVPUSH ONE (19:38)
[2021-05-24] MEDS ORDERED: Sodium Chloride 0.9% 1,000 ML IV STA (20:22)
[2021-05-24 21:42] LABS: BLOOD UREA NITROGEN,BUN 9 mg/dL (7.0-18.0); CARBON DIOXIDE,CO2 25.2 mmol/L (21.0-32.0); CHLORIDE,CL 106 mmol/L (98-107); GLUCOSE RANDOM 129 mg/dL (74-106); LIPASE 95 U/L (73-393); POTASSIUM,K 3.6 mmol/L (3.5-5.1); SODIUM,NA 142 mmol/L (136-145)
[2021-05-24] MEDS ORDERED: Iopamidol 755 Mg/ML 100 ML Bottle IVPUSH ONE (21:51)
--- NOTE | 2021-05-24 23:25 | CT ---
INDICATION: Abdominal pain. CT ABDOMEN AND PELVIS WITH CONTRAST TECHNIQUE: Multidetector CT imaging was performed through the abdomen and pelvis following intravenous contrast administration using 100 mL Isovue 370. Coronal and sagittal reconstructions were generated. COMPARISON: None. FINDINGS: Lower chest: Small to moderate-sized area of ground-glass opacity in the periphery of the left lower lobe and additional small pleural-based opacities in the inferior lingula and along the inferior aspect of the right major fissure. These findings are suspicious for atypical pneumonia such as due to COVID-19. Liver: Diffuse fatty infiltration of the liver. Small areas of focal sparing in the posterior aspect of the right hepatic lobe. Gallbladder and bile ducts: Status post cholecystectomy. No biliary dilation identified. Pancreas: Unremarkable. Spleen: Normal. Adrenals: No nodules or masses. Kidneys, ureters, and urinary bladder: Several small hypodensities in both kidneys consistent with small bilateral renal cysts. No hydronephrosis involving either kidney. No bladder mass or definite wall thickening. 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 Normal caliber small bowel without wall thickening or obstruction. The appendix is normal. Multiple diverticula of the sigmoid colon without evidence of diverticulitis. Very small fat-containing umbilical hernia. Vascular structures: Normal for age. Peritoneum: No free air, abscess, or significant free fluid. Lymph nodes: No pathologically enlarged nodes identified. Reproductive organs: No pelvic masses. Bones: Mild spinal degenerative changes. IMPRESSION: 1. Patchy bibasilar pulmonary opacities suspicious for atypical pneumonia, possibly COVID-19. Clinical correlation is recommended. 2. No acute intra-abdominal abnormality identified. 3. Nonacute findings as detailed above. MERCEDES MANCILLA MD [facility] Dictated by Frank Mancilla MD @ 05/24/2021 11:23:05 PM Please note that all CT scans at this facility use dose modulation, iterative reconstruction, and/or weight-based dosing when appropriate to reduce radiation dose to as low as reasonably achievable. Dictated by: Frank Mancilla MD @ 05/24/2021 23:25:02 (Electronically Signed)
== END 2021-05-25 00:19 | disposition home or self-care (01) ==
LOC: MW.ED 19:17
DX: K29.00 Acute gastritis without bleeding (principal); E78.00 Pure hypercholesterolemia, unspecified; I10 Essential (primary) hypertension; E66.9 Obesity, unspecified; Z88.0 Allergy status to penicillin; Z68.36 Body mass index [BMI] 36.0-36.9, adult
CPT/HCPCS: 36415; 74177; 80053; 81001; 83690; 85025; 96374; 99285; A9270; J3490; J7030; Q9967; 99284

== ENCOUNTER 2022-04-06 18:20 | Emergency (ER) | payer OTHER ==
[2022-04-06] MEDS ORDERED: Sodium Chloride 0.9% 1,000 ML IV ONE (18:42)
[2022-04-06 19:12] LABS: CARBON DIOXIDE,CO2 24.6 mmol/L (21.0-32.0); POTASSIUM,K 3.5 mmol/L (3.5-5.1)
== END 2022-04-06 20:30 | disposition home or self-care (01) ==
LOC: EDBD 18:20 → MW.ED 18:20 → MERGE 18:20 → MW.ED 20:30
DX: R55 Syncope and collapse (principal); Z32.01 Encounter for pregnancy test, result positive
CPT/HCPCS: 36415; 71045; 80053; 84484; 84702; 84703; 85025; 86304; 93005; 96360; 99284; J7030; 93010